=== PATIENT | female | born 1975 ===

== ENCOUNTER 2024-12-24 21:42 | Emergency (ER) | payer SELFPAY | END 2024-12-24 22:39 | disposition left against medical advice (07) | LOC: ER 21:44 | DX: M54.9 Dorsalgia, unspecified (principal); Z53.21 Procedure and treatment not carried out due to patient leaving prior to being seen by health care provider ==

== ENCOUNTER 2024-12-25 13:51 | Emergency (ER) | payer SELFPAY ==
[~2024-12-25] VITALS: Ht 165.1 cm; Wt 59.3 kg
[2024-12-25 13:52] VITALS: BP 147/108; PULSE 123; RESP 15; TEMP 98.1; O2SAT 97
--- NOTE | 2024-12-25 14:13 | Physician Documentation ---
History of Present Illness ~ General Chief Complaint: See Chief Complaint Stated Complaint: SEE CHIEF Time Seen by MD: 14:04 Source: patient Mode of Arrival: Ambulatory Exam Limitations: no limitations History of Present Illness Initial Comments 49 yo female feels fatigued and need to get out of heat. Homeless Review of Systems All Other Systems at this time: Reviewed and Negative Physical Exam Physical Exam Vital Signs: Temperature: 98.1, Source: Temporal, Heart Rate: 123, Respiratory Rate: 15, BP: 147/108, Pulse Oximetry: 97, Weight: 59.300 General Appearance: alert, WD/WN, no apparent distress Respiratory: lungs clear, normal breath sounds, no respiratory distress Chest: no accessory muscle use, chest non-tender Cardiovascular: regular rate, rhythm Cardiovascular Tachy Progress Results/Orders Results/Orders Vital Signs 12/25/24 13:52 Temp 98.1 Pulse 123 Resp 15 B/P (MAP) 147/108 Pulse Ox 97 Medical Decision Making Findings homeless and hot Departure Time of Disposition: 14:42 Disposition: 07 LEFT AWOL/ELOPED Impression: Primary Impression: Homeless Condition: Stable Referrals: NO PRIMARY CARE PROVIDER (PCP) Education Educated: Patient Educated regarding: diagnosis, treatment, need for follow up Signature Scribe Signature: no scribe Attestation: The note accurately reflects work and decisions made by me.Lola CORTÉS 12/25/24 14:12 LOLA AYOUB NP Dec 25, 2024 14:13
== END 2024-12-25 15:20 | disposition left against medical advice (07) ==
LOC: ER 13:52
DX: R53.83 Other fatigue (principal); Z59.00 Homelessness unspecified
CPT/HCPCS: 99282